=== PATIENT | male | born 1960 | race American Indian/Alaskan Native ===

== ENCOUNTER 2019-04-05 09:16 | Emergency (ER) | payer SELFPAY ==
[2019-04-05 09:24] VITALS: BP 136/89
--- NOTE | 2019-04-05 10:58 | Emergency Department Report ---
<GERBER GARDNER - Last Filed: 04/05/19 11:41> ED General Adult HPI - General Chief complaint: Eye Problems Stated complaint: BLURRY VISION/TYPE 1 DIABETIC Time Seen by Provider: 04/05/19 10:17 - History of Present Illness Initial comments: I spoke to patient to clarify patient's history of present illness. Patient states he last had eye exam by master of ceremonies about 3-4 months ago. He was prescribed reading glasses at that time. His eye were not dilated. Since his last eye exam he has had gradually worsening blurred with far distance sight. Pt denies eye pain, headache, or trauma. He has never been seen by crude oil treater. Patient has an out of his diabetes medication for a month and assumed his diabetes was the cause of his blurred vision. His glucose is normal upon arrival to the ED - Related Data Home Medications Medication Instructions Recorded Confirmed Last Taken Insulin Detemir [Levemir VIAL] 10 unit SQ QHS 04/05/19 04/05/19 Unknown Previous Rx's Medication Instructions Recorded Last Taken Type metFORMIN [Glucophage] 500 mg PO BID #30 tablet 04/05/19 Unknown Rx ED Past Medical Hx - Medications Home Medications: Home Medications Medication Instructions Recorded Confirmed Last Taken Type Insulin Detemir [Levemir VIAL] 10 unit SQ QHS 04/05/19 04/05/19 Unknown History metFORMIN [Glucophage] 500 mg PO BID #30 tablet 04/05/19 Unknown Rx ED Medical Decision Making - Lab Data Result diagrams: 04/05/19 10:57 ED Disposition Clinical Impression: Blurry vision, Medication refill Disposition: - TO HOME OR SELFCARE Condition: Stable Additional Instructions: Follow-up with a primary care and crude oil treater doctor in 3-5 days or if symptoms worsen and continue return to emergency room as soon as possible. Prescriptions: metFORMIN [Glucophage] 500 mg PO BID #30 tablet Referrals: [facility]– [place]Outside] - 3-5 Days [facility] [Outside] - 3-5 Days PRIMARY CAREMD [Primary Care Provider] - 3-5 Days JOHN ROSALES MD [Staff Physician] - 3-5 Days DIOGO CABRERA MD [Staff Physician] - 3-5 Days Forms: Work/School Release Form(ED) <LILLIAN THRASHER - Last Filed: 04/05/19 12:28> ED General Adult HPI - General Source: patient Mode of arrival: Ambulatory Limitations: No Limitations - History of Present Illness Initial comments: This is a 59-year-old male nontoxic, well nourished in appearance, no acute signs of distress presents to the ED with c/o of acute on chronic intermittent in blurry vision 7 months. Patient stated that symptoms started to worse after he started to wear glasses. Patient denies any eye pain. Denies any visual changes. Patient stated the past last month patient has been out of his metformin and insulin. Patient denies any headache, neck pain, chest pain, shortness of breath, fever, chills, body aches or weakness. Denies any urinary symptoms. Denies abdominal pain or back pain. Patient denies any allergies. Past medical history includes type 1 diabetes. MD Complaint: blurry vision -: month(s) (7) Severity scale (0 -10): 0 Improves with: none Worsens with: none Associated Symptoms: denies other symptoms. denies: confusion, chest pain, cough, diaphoresis, fever/chills, headaches, loss of appetite, malaise, nausea/vomiting, rash, seizure, shortness of breath, syncope, weakness Treatments Prior to Arrival: none ED Review of Systems ROS: Stated complaint: BLURRY VISION/TYPE 1 DIABETIC Other details as noted in HPI Constitutional: denies: chills, fever Eyes: denies: eye pain, eye discharge, vision change ENT: denies: ear pain, throat pain Respiratory: denies: cough, shortness of breath, wheezing Cardiovascular: denies: chest pain, palpitations Endocrine: no symptoms reported Gastrointestinal: denies: abdominal pain, nausea, diarrhea Genitourinary: denies: urgency, dysuria Musculoskeletal: denies: back pain, joint swelling, arthralgia Skin: denies: rash, lesions Neurological: denies: headache, weakness, paresthesias Psychiatric: denies: anxiety, depression Hematological/Lymphatic: denies: easy bleeding, easy bruising ED Past Medical Hx - Past Medical History Previous Medical History?: Yes Hx Diabetes: Yes - Surgical History Past Surgical History?: No - Social History Smoking Status: Never Smoker Substance Use Type: None ED Physical Exam - General Limitations: No Limitations General appearance: alert, in no apparent distress - Head Head exam: Present: atraumatic, normocephalic - Eye Eye exam: Present: normal appearance, PERRL, EOMI. Absent: periorbital swelling, periorbital tenderness Pupils: Present: normal accommodation - Expanded Eye Exam Expanded Eyelids: Normal Inspection: Right Pupils: Regular, Round: Bilateral, Reactive: Bilateral Posterior chamber: [place]: Left Visual acuity (R) = 20/: 200 (with and without glasses) Visual acuity (L) = 20/: 200 (with and without glasses) With correction: Yes - Neck Neck exam: Present: normal inspection, full ROM. Absent: tenderness, meningismus, lymphadenopathy - Extremities Exam Extremities exam: Present: normal inspection, full ROM - Back Exam Back exam: Present: normal inspection, full ROM. Absent: tenderness, CVA tenderness (R), CVA tenderness (L), muscle spasm, paraspinal tenderness, vertebral tenderness, rash noted - Neurological Exam Neurological exam: Present: alert, oriented X3, normal gait - Expanded Neurological Exam Expanded Patient oriented to: Present: person, place, time Cranial nerves: EOM's Intact: Normal, Facial Sensation: Normal Motor strength exam: RUE: 5, LUE: 5, RLE: 5, LLE: 5 Best Eye Response (Frierson): (4) open spontaneously Best Motor Response (Frierson): (6) obeys commands Best Verbal Response (Stephanie): (5) oriented Frierson Total: 15 - Psychiatric Psychiatric exam: Present: normal affect, normal mood - Skin Skin exam: Present: warm, dry, intact, normal color. Absent: rash ED Course Vital Signs 04/05/19 04/05/19 04/05/19 09:21 09:25 11:22 Temperature 98.4 F Pulse Rate 88 81 Respiratory 16 16 Rate Blood Pressure 136/89 O2 Sat by Pulse 100 Oximetry 04/05/19 11:27 Temperature Pulse Rate Respiratory 16 Rate Blood Pressure O2 Sat by Pulse Oximetry - Reevaluation(s) Reevaluation #1: 04/05/19 11:09 Patient is speaking in full sentences with no signs of distress noted. - Consultations Consultation #1: 04/05/19 11:58 Patient has been consulted with Misha Lizarraga about patient history, physical exam, and labs and examined and screened patient and agrees to ED plan of care and discharge plan of care. ED Medical Decision Making - Lab Data Result diagrams: 04/05/19 10:57 04/05/19 10:57 - Medical Decision Making 59-year-old male that presents with blurry vision and medication refill. Patient is currently stable and was examined by me. Labs obtained and unremarkable. CT of head has been obtained and dictated by radiologist. CT results is consistent with uncontrolled DMs. Patient is notified of the CT results with no questions noted by the patient. Vital signs are stable prior to discharge. Patient states medication will be refilled as he stated he takes metformin 500 mg twice daily. I will not startd patient on Levemir as he may develop hypoglycemia. Patient has blood surgar of 100s on not taking medications for 1 month. Patient was instructed to Follow-up with a primary care and crude oil treater doctor in 3-5 days or if symptoms worsen and continue return to emergency room as soon as possible. At time of discharge, the patient does not seem toxic or ill in appearance. No acute signs of distress noted. Patient agrees to discharge treatment plan of care. No further questions noted by the patient. Critical care attestation.: If time is entered above; I have spent that time in minutes in the direct care of this critically ill patient, excluding procedure time. ED Disposition Is pt being admited?: No Does the pt Need Aspirin: No
[2019-04-05 11:15] LABS: Basophils % (Auto) 0.7 % (0.0-1.8); Eosinophils # (Auto) 0.2 K/mm3 (0.0-0.4); Eosinophils % (Auto) 3.8 % (0.0-4.3); Hematocrit 42.7 % (35.5-45.6); Hemoglobin 14.1 gm/dl (11.8-15.2); Lymphocytes # (Auto) 1.8 K/mm3 (1.2-5.4); Lymphocytes % (Auto) 35.4 % (13.4-35.0); Mean Corpuscular HGB Conc 33 % (32-34); Mean Corpuscular Volume 85 fl (84-94); Monocytes # (Auto) 0.3 K/mm3 (0.0-0.8); Monocytes % (Auto) 6.2 % (0.0-7.3); Platelet Count 328 K/mm3 (140-440); Red Blood Count 5.02 M/mm3 (3.65-5.03)
--- NOTE | 2019-04-05 11:15 | Cat Scan Report ---
CT head/brain wo con INDICATION / CLINICAL INFORMATION: 59 years Male; blurry vision. TECHNIQUE: Routine CT head without contrast. All CT scans at this location are performed using CT dos e reduction for ALARA by means of automated exposure control. COMPARISON: None. FINDINGS: There appears be mild cerebral white matter disease with small foci of relative decreased attenuation involving the subcortical regions. Findings are nonspecific though most compatible with microvascula r angiopathy. There is no CT ends of acute intracranial hemorrhage or significant mass effect. There is a developmental cavum septum vergae. The ventricular system is appropriate in size. ORBITS: No significant abnormality of visualized orbits. SINUSES / MASTOIDS: No significant abnormality the visualized paranasal sinuses or mastoid air cells. CRANIOCERVICAL JUNCTION: No significant abnormality. ADDITIONAL FINDINGS: None. IMPRESSION: 1. 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 Signer Name: Matthew Pacheco MD Signed: 04/05/2019 11:10 AM Workstation Name: [id number]
[2019-04-05 11:48] LABS: BUN/Creatinine Ratio 14; Blood Urea Nitrogen 11 mg/dL (9-20); Calcium 9.5 mg/dL (8.4-10.2); Hemolysis Index 24
[2019-04-05 11:55] LABS: Bilirubin,Urine NEG (Negative); Blood,Urine NEG (Negative); Color,Urine Yellow (Yellow); Protein,Urine <15 mg/dL mg/dL (Negative); WBC,Urine < 1.0 /HPF (0.0-6.0)
== END 2019-04-05 12:41 | disposition home or self-care (01) ==
LOC: ED 09:16
DX: H53.8 Other visual disturbances (principal); E11.9 Type 2 diabetes mellitus without complications
CPT/HCPCS: 36415; 70450; 80048; 81001; 82805; 82962; 85025